=== PATIENT | male | born 1995 | race Native Hawaiian/Other Pacific Islander ===

== ENCOUNTER 2021-02-20 08:57 | Emergency (ER) | payer OTHER ==
[~2021-02-20] VITALS: Ht 188 cm; Wt 124.7 kg
[2021-02-20 09:00] VITALS: BP 165/117; TEMP 96.7
== END 2021-02-20 11:20 | disposition home or self-care (01) ==
LOC: ED 08:57
PROC: 08QPXZZ Repair Left Upper Eyelid, External Approach (ICD-10-PCS; principal; 2021-02-20)
DX: S01.112A Laceration without foreign body of left eyelid and periocular area, initial encounter (principal); H02.844 Edema of left upper eyelid; W22.8XXA Striking against or struck by other objects, initial encounter; Y92.89 Other specified places as the place of occurrence of the external cause
CPT/HCPCS: 99283